=== PATIENT | female | born 1960 ===

== ENCOUNTER 2021-06-11 07:30 | Inpatient (IN) | payer OTHER ==
[~2021-06-11] VITALS: Ht 152.4 cm
[2021-06-11] MEDS ORDERED: ZOCOR40 MG PO (08:33)
[2021-06-11] MEDS ORDERED: FAMOTIDINE40 MG PO (08:33)
[2021-06-11] MEDS ORDERED: ENALAPRIL MALEAT5 MG PO (08:34)
[2021-06-11] MEDS ORDERED: MONTELUKAST SOD10 MG PO (08:34)
[2021-06-11] MEDS ORDERED: TOPROL XL25 M1 PO (08:34)
[2021-06-11] MEDS ORDERED: CYMBALTA60 MG PO (08:35)
[2021-06-11] MEDS ORDERED: HYDROCHLOROTH12.5 MG PO (08:35)
[2021-06-11] MEDS ORDERED: ZANAFLEX4 M1 PO (08:35)
[2021-06-11] MEDS ORDERED: PANTOPRAZOLE SO20 MG PO (08:36)
[2021-06-11] MEDS ORDERED: COLACE100 MG PO (08:36)
[2021-06-17] MEDS ORDERED: AMITRIPTYLINE H25 MG (07:54)
[2021-06-17] MEDS ORDERED: FOLIC ACID1 MG (07:54)
[2021-06-17] MEDS ORDERED: VITAMIN D3250 MCG (07:55)
[2021-06-17] MEDS ORDERED: FLONASE16 GM (07:55)
[2021-06-17] MEDS ORDERED: HYOSCYAMINE0.125 M1 (07:55)
[2021-06-17] MEDS ORDERED: METHOTREXA25 MG/1 M5 (07:55)
[2021-06-17] MEDS ORDERED: TIZANIDINE HCL4 MG (07:55)
[2021-07-13] MEDS ORDERED: QUESTRAN PACKET4 GM PO (13:35)
[2021-07-13] MEDS ORDERED: LEVSIN/SL0.125 MG SL (13:35)
[2021-07-13] MEDS ORDERED: BACTRIM 400-801 EACH PO (13:35)
[2021-07-13] MEDS ORDERED: INTESTINEX680 M1 PO (13:35)
[2021-07-13] MEDS ORDERED: ULTRAM50 MG PO (13:35)
[2021-07-13] MEDS ORDERED: AMOX-CLAV 875-1 EACH PO (13:58)
== END 2021-07-13 14:35 | disposition home or self-care (01) | DRG 329 ==
LOC: SURH 06-17 05:50 → SURG 06-17 05:50 → O/R 06-17 05:50 → SURG 06-17 07:30 → O/R 06-17 13:34 → SURG 06-17 17:59 → SURH 06-27 12:30 → ICU 07-01 03:39 → SURG 07-04 11:17 → SURH 07-10 12:25
PROVIDERS: ADMIT Surgery; ATTEND Surgery
PROC: 0DBP4ZZ Excision of Rectum, Percutaneous Endoscopic Approach (ICD-10-PCS; 2021-06-17)
PROC: 0DN84ZZ Release Small Intestine, Percutaneous Endoscopic Approach (ICD-10-PCS; 2021-06-17)
PROC: 0DQ84ZZ Repair Small Intestine, Percutaneous Endoscopic Approach (ICD-10-PCS; 2021-06-17)
PROC: 0DJD8ZZ Inspection of Lower Intestinal Tract, Via Natural or Artificial Opening Endoscopic (ICD-10-PCS; 2021-06-17)
PROC: 0DJD8ZZ Inspection of Lower Intestinal Tract, Via Natural or Artificial Opening Endoscopic (ICD-10-PCS; 2021-06-17)
PROC: 4A12X4Z Monitoring of Cardiac Electrical Activity, External Approach (ICD-10-PCS; 2021-06-17)
PROC: 0DTN4ZZ Resection of Sigmoid Colon, Percutaneous Endoscopic Approach (ICD-10-PCS; principal; 2021-06-17 09:00)
PROC: 02HV33Z Insertion of Infusion Device into Superior Vena Cava, Percutaneous Approach (ICD-10-PCS; 2021-06-18)
PROC: B54DZZZ Ultrasonography of Bilateral Lower Extremity Veins (ICD-10-PCS; 2021-06-20)
PROC: BW21YZZ Computerized Tomography (CT Scan) of Abdomen and Pelvis using Other Contrast (ICD-10-PCS; 2021-06-29)
PROC: 0DBB0ZZ Excision of Ileum, Open Approach (ICD-10-PCS; 2021-07-01)
PROC: 0DTH0ZZ Resection of Cecum, Open Approach (ICD-10-PCS; 2021-07-01)
PROC: 0DBU0ZZ Excision of Omentum, Open Approach (ICD-10-PCS; 2021-07-01)
PROC: 0DQ80ZZ Repair Small Intestine, Open Approach (ICD-10-PCS; 2021-07-01)
PROC: 0BH17EZ Insertion of Endotracheal Airway into Trachea, Via Natural or Artificial Opening (ICD-10-PCS; 2021-07-01)
PROC: 5A1945Z Respiratory Ventilation, 24-96 Consecutive Hours (ICD-10-PCS; 2021-07-01)
PROC: B54MZZZ Ultrasonography of Right Upper Extremity Veins (ICD-10-PCS; 2021-07-02)
PROC: 30243N1 Transfusion of Nonautologous Red Blood Cells into Central Vein, Percutaneous Approach (ICD-10-PCS; 2021-07-03)
PROC: BW21YZZ Computerized Tomography (CT Scan) of Abdomen and Pelvis using Other Contrast (ICD-10-PCS; 2021-07-08)
DX: K57.20 Diverticulitis of large intestine with perforation and abscess without bleeding (principal); J95.821 Acute postprocedural respiratory failure; K65.1 Peritoneal abscess; E87.2 Acidosis; D62 Acute posthemorrhagic anemia; K91.31 Postprocedural partial intestinal obstruction; R59.0 Localized enlarged lymph nodes; K59.09 Other constipation; I10 Essential (primary) hypertension; E87.6 Hypokalemia; E83.42 Hypomagnesemia; K30 Functional dyspepsia; K21.9 Gastro-esophageal reflux disease without esophagitis; I95.89 Other hypotension; F43.20 Adjustment disorder, unspecified; F43.23 Adjustment disorder with mixed anxiety and depressed mood; G47.33 Obstructive sleep apnea (adult) (pediatric); E83.39 Other disorders of phosphorus metabolism; F43.21 Adjustment disorder with depressed mood; F43.22 Adjustment disorder with anxiety; Z20.822 Contact with and (suspected) exposure to COVID-19; Z53.31 Laparoscopic surgical procedure converted to open procedure

== ENCOUNTER 2022-12-09 08:16 | Inpatient (IN) | payer OTHER ==
[~2022-12-09] VITALS: Ht 152.4 cm; Wt 78.9 kg
[~2022-12-09 08:16] MED LIST: AMITRIPTYLINE H25 MG; AMOX-CLAV 875-1 EACH PO; BACTRIM 400-801 EACH PO; COLACE100 MG PO; CYMBALTA60 MG PO; ENALAPRIL MALEAT5 MG PO; FAMOTIDINE40 MG PO; FLONASE16 GM; FOLIC ACID1 MG; HYDROCHLOROTH12.5 MG PO; HYOSCYAMINE0.125 M1; INTESTINEX680 M1 PO; LEVSIN/SL0.125 MG SL; METHOTREXA25 MG/1 M5; MONTELUKAST SOD10 MG PO; PANTOPRAZOLE SO20 MG PO; QUESTRAN PACKET4 GM PO; TIZANIDINE HCL4 MG; TOPROL XL25 M1 PO; ULTRAM50 MG PO; VITAMIN D3250 MCG; ZANAFLEX4 M1 PO; ZOCOR40 MG PO
[2022-12-09 09:23] LABS: URINE APPEARANCE Clear; URINE BILIRRUBIN Negative (NEGATIVE); URINE BLOOD Small; URINE COLOR Yellow; URINE GLUCOSE Negative (NEGATIVE); URINE LEUKOCYTE Trace; URINE NITRATE Negative; URINE PROTEIN Negative (NEGATIVE); URINE UROBILINOGEN 0.2 E.U./dl
[2022-12-09 09:27] LABS: HEMATOCRIT 34.9 % (36.0-45.00); HEMOGLOBIN 11.9 g/dL (12.0-15.00); MEAN CELL VOLUME 85.2 fL (80.00-100.00); PLATELET COUNT 334 K/uL (150-450); RED CELL DISTRIBUTION WIDTH 14.3 % (11.5-14.5)
[2022-12-09 09:27] LABS: URINE BACTERIA 14.5 uL (0.0-1933); URINE EPITHELIAL CELLS 5.4 uL (0.0-38.8); URINE RBC 15.8 uL (0.0-20.8); URINE WBC 7.9 uL (0.0-23.2)
[2022-12-09 09:50] LABS: INR 0.98; PARTIAL THROMBOPLASTIN TIME 28.1 SECONDS (22.0-34.0); PROTHROMBIN TIME 10.3 SECONDS (9.0-11.5)
[2022-12-09 09:55] LABS: ALBUMIN 3.8 gm/dL (3.4-5.0); BILIRUBIN TOTAL 0.24 mg/dL (0.3-1.2); CALCIUM 9.6 mg/dL (8.5-10.1); CREATININE SERUM 0.64 mg/dL (0.55-1.02); GFR 94.03; GLOBULINA 3.6 G/DL (2.4-3.5); POTASSIUM 4.06 mEq/L (3.5-5.1); TOTAL PROTEIN 7.4 gm/dL (6.4-8.2)
[2022-12-13 20:47] LABS: HEMATOCRIT 32.1 % (36.0-45.00); HEMOGLOBIN 11.1 g/dL (12.0-15.00); MEAN CELL VOLUME 84.9 fL (80.00-100.00); MEAN CORPUSCULAR HEMOGLOBIN 29.3 pg (27.00-32.0); MEAN CORPUSCULAR HGB CONC 34.5 g/dl (32.0-36.0); PLATELET COUNT 305 K/uL (150-450); RED BLOOD COUNT 3.78 M/uL (4.00-6.00); RED CELL DISTRIBUTION WIDTH 14.2 % (11.5-14.5)
[2022-12-13 20:52] LABS: ABG PH 7.362 (7.35-7.45); ABG pCO2 47.7 mmHg (35-45); BASE EXCESS 0.5 mmol/l; BICARBONATE 26.5 mmol/l (23-25); SaO2 94.5 %; Tco2 27.9 mmol/l
[2022-12-13 20:53] LABS: allen test SATISFACTORY; o2 21 %; puncture site RADIAL RIGHT
[2022-12-14 07:42] LABS: HEMATOCRIT 30.6 % (36.0-45.00); MEAN CORPUSCULAR HGB CONC 34.6 g/dl (32.0-36.0); PLATELET COUNT 283 K/uL (150-450); RED BLOOD COUNT 3.61 M/uL (4.00-6.00)
[2022-12-14 07:48] LABS: HEMOGLOBIN 10.6 g/dL (12.0-15.00); MEAN CORPUSCULAR HEMOGLOBIN 29.3 pg (27.00-32.0)
[2022-12-14 08:09] LABS: ALBUMIN 2.9 gm/dL (3.4-5.0); CALCIUM 8.3 mg/dL (8.5-10.1); CREATININE SERUM 0.62 mg/dL (0.55-1.02); GFR 97.22; MAGNESIUM 1.7 mg/dL (1.8-2.4); PHOSPHOROUS 3.2 mg/dL (2.5-4.9); POTASSIUM 3.42 mEq/L (3.5-5.1)
[2022-12-15 08:16] LABS: HEMATOCRIT 29.4 % (36.0-45.00); HEMOGLOBIN 10.2 g/dL (12.0-15.00); MEAN CELL VOLUME 85.1 fL (80.00-100.00); MEAN CORPUSCULAR HEMOGLOBIN 29.5 pg (27.00-32.0); MEAN CORPUSCULAR HGB CONC 34.7 g/dl (32.0-36.0); PLATELET COUNT 277 K/uL (150-450); RED BLOOD COUNT 3.46 M/uL (4.00-6.00); RED CELL DISTRIBUTION WIDTH 14.1 % (11.5-14.5)
[2022-12-15 09:04] LABS: CREATININE SERUM 0.5 mg/dL (0.55-1.02); GFR 124.61; MAGNESIUM 2.2 mg/dL (1.8-2.4); PHOSPHOROUS 2.1 mg/dL (2.5-4.9); POTASSIUM 3.94 mEq/L (3.5-5.1)
[2022-12-16 06:59] LABS: HEMATOCRIT 27.1 % (36.0-45.00); HEMOGLOBIN 9.3 g/dL (12.0-15.00); MEAN CELL VOLUME 86.1 fL (80.00-100.00); MEAN CORPUSCULAR HEMOGLOBIN 29.6 pg (27.00-32.0); MEAN CORPUSCULAR HGB CONC 34.4 g/dl (32.0-36.0); PLATELET COUNT 276 K/uL (150-450); RED BLOOD COUNT 3.15 M/uL (4.00-6.00); RED CELL DISTRIBUTION WIDTH 14.3 % (11.5-14.5)
== END 2022-12-17 15:02 | disposition home or self-care (01) | DRG 336 ==
LOC: SURH 12-13 07:00 → O/R 12-13 07:18 → SURH 12-13 08:45
PROVIDERS: Internal Medicine Geriatric Medicine; ADMIT Surgery; ATTEND Surgery
PROC: 0WUF4JZ Supplement Abdominal Wall with Synthetic Substitute, Percutaneous Endoscopic Approach (ICD-10-PCS; 2022-12-13)
PROC: 0DNU4ZZ Release Omentum, Percutaneous Endoscopic Approach (ICD-10-PCS; 2022-12-13)
PROC: 4A12X4Z Monitoring of Cardiac Electrical Activity, External Approach (ICD-10-PCS; 2022-12-13)
PROC: 0DN84ZZ Release Small Intestine, Percutaneous Endoscopic Approach (ICD-10-PCS; principal; 2022-12-13 07:00)
DX: K43.6 Other and unspecified ventral hernia with obstruction, without gangrene (principal); K56.50 Intestinal adhesions [bands], unspecified as to partial versus complete obstruction; L03.311 Cellulitis of abdominal wall; K91.89 Other postprocedural complications and disorders of digestive system; K57.30 Diverticulosis of large intestine without perforation or abscess without bleeding